=== PATIENT | male | born 1960 | race Caucasian/White ===

== ENCOUNTER 2020-01-17 15:29 | Emergency (ER) | payer BC ==
--- NOTE | 2020-01-17 16:37 | ER Document Report ---
HPI - HPI Time Seen by Provider: 01/17/20 16:23 Notes: 59-year-old male patient presenting with left lower extremity pain and swelling. He was seen at his primary care provider's office and presented to our [facility] for venous Doppler ultrasound. The venous Doppler tech has brought him to the emergency department as his venous Doppler was positive for DVT. Patient has never had a DVT before. He denies any chest pain or shortness of breath. He is not on any anticoagulation. - ROS Systems Reviewed and Negative: Yes All other systems reviewed and negative - MUSCULOSKELETAL Musculoskeletal: REPORTS: Extremity pain Past Medical History - General Information source: Patient - Social History Smoking Status: Never Smoker Frequency of alcohol use: None Family History: None - Past Medical History Cardiac Medical History: Reports: Hx Hypertension Vertical Provider Document - CONSTITUTIONAL Notes: PHYSICAL EXAMINATION: GENERAL: Well-appearing, well-nourished and in no acute distress. HEAD: Atraumatic, normocephalic. EYES: Pupils equal round extraocular movements intact, conjunctiva are normal. ENT: Nares patent NECK: Normal range of motion LUNGS: No respiratory distress Musculoskeletal: Normal range of motion, slight swelling noted to left lower extremity from the knee to the ankle. No obvious erythema or warmth on palpation. Strong popliteal pulse. NEUROLOGICAL: Normal speech, normal gait. PSYCH: Normal mood, normal affect. SKIN: Warm, Dry, normal turgor, no rashes or lesions noted. Course - Re-evaluation Re-evalutation: 01/17/20 16:32 Patient was brought down by venous Doppler tach after he had an outpatient venous Doppler ordered showing positive for DVT. Please see radiology report from visit today. We will start patient on Xarelto 15 mg twice daily for 3 weeks. He will follow-up with his primary care provider. - Vital Signs Vital signs: Temp Pulse Resp BP Pulse Ox 98.7 F 68 18 135/80 H 99 01/17/20 15:45 01/17/20 15:45 01/17/20 15:45 01/17/20 15:45 01/17/20 15:45 Discharge - Discharge Clinical Impression: Deep vein thrombosis (DVT) Qualifiers: DVT location: lower extremity Affected thrombotic vein of extremity: unspecified vein of extremity Chronicity: acute Laterality: left Qualified Code(s): I82.402 - Acute embolism and thrombosis of unspecified deep veins of left lower extremity Condition: Stable Disposition: HOME, SELF-CARE Additional Instructions: DVT Outpatient Treatment You have deep venous thrombosis (DVT) in your leg. DVT or phlebitis is blood clots within the large deep veins. This causes redness, warmth, and tenderness of the involved area. This problem is more likely to affect people who smoke, take estrogen, have had recent surgery, have been immobile, have had previous DVT, or who have serious underlying health conditions. Keep your legs elevated. A heating pad, 20 minutes every two hours, can help with leg pain. For now, keep walking to a minimum. Don't do any physical work, lifting, or exercise. If the doctor has recommended medication for you, it's important that you take it. You will be started on a blood-thinning medication. Follow-up is important. Your medication needs to be monitored. Call or return at once if you cough blood or vomit blood, pass black or bloody stool, or have any other unusual bleeding. DVT can cause serious complications. The clots can damage the valves in the veins, leading to chronic pain and swelling. If a clot breaks loose and floats upstream, it can stick in the lungs. A clot in the lungs, called pulmonary embolism, can be life-threatening. Call the doctor or return if you develop increasing leg pain and swelling, leg discoloration, fever, chest pain, or shortness of breath. Prescriptions: Rivaroxaban [Xarelto 15 mg Tablet] 15 mg PO BID #42 tablet Referrals: CLAIRE PENA FNP-C [Primary Care Provider] - Follow up as needed
[2020-01-17 17:11] VITALS: BP 125/80
== END 2020-01-17 17:10 | disposition home or self-care (01) ==
LOC: ER 15:29
DX: I82.402 Acute embolism and thrombosis of unspecified deep veins of left lower extremity (principal); I10 Essential (primary) hypertension
CPT/HCPCS: 99283

== ENCOUNTER → 2020-01-17 | Outpatient (CLI) | payer BC ==
--- NOTE | 2020-01-17 16:25 | RADIOLOGY REPORT (SQ) ---
EXAM DESCRIPTION: VENOUS UNILATERAL LOWER IMAGES COMPLETED DATE/TIME: 01/17/2020 4:12 pm REASON FOR STUDY: LLE SWELLING M79.89 OTHER SPECIFIED SOFT TISSUE DISORDERS COMPARISON: None. TECHNIQUE: Dynamic and static chase scale and color images acquired of the left leg venous system. Se lected spectral images acquired with additional compression and augmentation maneuvers. The contralat eral common femoral vein and saphenofemoral junction were also imaged. Images stored on PACS. LIMITATIONS: None. FINDINGS: COMMON FEMORAL: Normal phasicity, compression and augmentation. No visualized echogenic ma terial on chase scale. No defects on color images. FEMORAL: Normal compression and augmentation. No visualized echogenic material on chase scale. No defe cts on color images. POPLITEAL: Normal compression, augmentation. No visualized echogenic material on chase scale. No defec ts on color images. CALF VESSELS: Occlusive thrombus posterior tibial vein. GSV and SSV: Occlusive thrombus greater and small saphenous veins. ANY DEEP VENOUS INSUFFICIENCY: Not evaluated. ANY EVIDENCE OF POPLITEAL CYST: No. OTHER: No other significant finding. CONTRALATERAL COMMON FEMORAL VEIN AND SAPHENOFEMORAL JUNCTION: Normal phasicity, compression and augmentation. No visualized echogenic material on chase scale. No de fects on color images. IMPRESSION: Acute thrombosis posterior tibial and saphenous veins. TECHNICAL DOCUMENTATION: JOB ID: [id number] 2010 [email or web address] All Rights Reserved Reading location - IP/workstation name: [email or web address]
== END ==
LOC: SP 12:36
PROVIDERS: ATTEND Nurse Practitioner Family
DX: I82.442 Acute embolism and thrombosis of left tibial vein (principal); M79.89 Other specified soft tissue disorders
CPT/HCPCS: 93971